=== PATIENT | female | born 1975 | race African-American/Black ===

== ENCOUNTER 2016-11-25 08:29 | Outpatient (CLI) | payer BC ==
--- NOTE | 2016-11-25 10:30 | Ultrasound Report ---
Left mammogram and left breast ultrasound: Additional imaging of the left breast is performed based on recent screening examination. A repeat CC view with spot compression CC and medial lateral imaging of the left breast is performed for an area of possible new asymmetry in the medial breast. The additional views are compared to prior exams dating back several years. None of the previous CC views appear to be posteriorly positioned as the current examination. A portion of the asymmetry currently noted in the medial breast appears unchanged from a prior exam in 2015. There is however a nodular component slightly more posteriorly that was not included. On the spot compression imaging this nodular component is somewhat less impressive than on the standard CC view. It is slightly inhomogeneous and the margins are relatively sharp. It measures only 3.5 mm in size. There are no findings in the lateral projection. Ultrasound of the entire medial breast fail to identify any focal or abnormal echogenic findings. Impression: Probably benign findings. The asymmetry could have been present on prior studies but not included on the images. Recommendation: Repeat CC mammogram of the left breast in 6 months. BI-RADS CATEGORY: 3 = Probably benign ACR BI-RADS MAMMOGRAPHIC CODES: 0 = Needs additional imaging evaluation; 1 = Negative; 2 = Benign; 3 = Probably benign; 4 = Suspicious; 5 = Malignant; 6 = Known biopsy-proven malignancy COMMENT: 1. Dense breast tissue, i.e., adenosis, fibrocystic changes, etc., may obscure an underlying neoplasm. 2. Approximately 10% of cancers are not detected with mammography. 3. A negative mammography report should not delay biopsy if a clinically suspicious mass is present.
== END 2016-11-25 08:30 | disposition home or self-care (01) ==
LOC: MAMMO 08:29
PROVIDERS: ATTEND Obstetrics & Gynecology
DX: R92.2 Inconclusive mammogram (principal)
CPT/HCPCS: 76642; G0206

== ENCOUNTER 2020-07-15 09:23 | Outpatient (CLI) | payer BC ==
--- NOTE | 2020-07-15 11:37 | Mammography Report ---
DIGITAL SCREENING MAMMOGRAM WITH CAD, 07/15/2020 INDICATION: Routine screening mammography. ROUTINE TECHNIQUE: Digital bilateral 2D mammography was obtained in the craniocaudal and mediolateral obliq ue projections. This examination was interpreted with the benefit of Computer-Aided Detection analysi s. COMPARISON: 04/19/2016 FINDINGS: Breast Density: The breasts are extremely dense, which lowers the sensitivity of mammography. There is no evidence of dominant mass, suspicious calcifications or architectural distortion in eithe r breast. There is a scar over the left breast. IMPRESSION: Follow up recommendation: Routine yearly BI-RADS Category 2: Benign. A "normal" or negative report should not discourage follow up or biopsy of a clinically significant f inding. A written summary of these findings will be mailed to the patient. The patient will be entered into a mammography reporting system which will generate a reminder letter for the patient's next appointmen t at the appropriate interval. The [employer] recommends yearly mammograms starting at age 40 and continuing as l geo as a woman is in good health. Breast MRI is recommended for women with an approximate 20-25% or greater lifetime risk of breast cancer, including women with a strong family history of breast or ova willem cancer or who have been treated for Hodgkin's disease. Signer Name: Layton Greenberg MD Signed: 07/15/2020 11:32 AM Workstation Name: [id number]
== END 2020-07-15 09:24 | disposition home or self-care (01) ==
LOC: MAMMO 09:23
PROVIDERS: ATTEND Obstetrics & Gynecology
DX: Z12.31 Encounter for screening mammogram for malignant neoplasm of breast (principal)
CPT/HCPCS: 77067